=== PATIENT | male | born 1960 | race Caucasian/White ===

== ENCOUNTER → 2021-01-17 13:42 | Outpatient (CLI) | payer OTHER, SELFPAY ==
[2021-01-09 15:21] VITALS: BMI 25.8
--- NOTE | 2021-01-17 13:57 | RAD_ITS ---
INDICATION: RECTAL CANCER -- PT ALSO HAS CT EXAMINATION/TECHNIQUE: X-RAY - XR Chest 2 Views COMPARISON: None. FINDINGS: The lungs are clear. Left basilar atelectasis. The cardiomediastinal silhouette is unremarkable. No pleural effusion or pneumothorax. Degenerative changes of the thoracic spine. RAD/Chest PA and Lateral IMPRESSION: No acute radiographic abnormalities. Electronically Signed: Kishore Toledo MD at 16:45 EDT Tel , Service support ,
[2021-01-17 14:15] LABS: CREATININE FINGERSTICK 0.8 mg/dL (0.70-1.30); EGFR FINGERSTICK > 60.0000 mL/min (>60)
--- NOTE | 2021-01-17 14:18 | CT_ITS ---
STUDY: CT ABDOMEN AND PELVIS WITH CONTRAST REASON FOR EXAM: Male, 60 years old. RECTAL CANCER RADIATION DOSAGE (If Supplied By Facility): CTDIvol = ( 12.59 ) mGy, DLP = ( 852.98 ) mGycm TECHNIQUE: Transaxial images were obtained from the dome of the diaphragm to the symphysis pubis with oral contrast. Oral and amp; IV Readi-CAT and amp; 100mL Isovue-300 was administered. Sagittal and coronal images were reconstructed. Individualized dose optimization techniques were used for this CT. COMPARISON: None. FINDINGS: The visualized lung bases are unremarkable. The visualized portions of the heart are within normal limits. Normal liver. Normal gallbladder and extrahepatic biliary system. Normal spleen. Normal pancreas. Normal bilateral adrenal glands. Normal right kidney. Normal left kidney. There is a small hiatal hernia. Normal small intestine. Moderate amount of fecal material is seen in the rectosigmoid colon. There is narrowing of the rectum just distal to the rectosigmoid junction. The appendix is visualized and appears normal. There is scattered atherosclerotic calcification of the abdominal aorta, without a demonstrated aneurysm. Normal inferior vena cava. Normal retroperitoneum. Normal urinary bladder. There are prostatic calcifications. There is a left-sided inguinal hernia containing adipose tissue. There are diffuse degenerative changes of the visualized lumbar spine. CT/Abdomen/Pelvis WITH Contrast IMPRESSION: Narrowing of the rectosigmoid junction. Electronically Signed: Ramiro Martínez MD at 14:58 EDT , Service support ,
[2021-01-19 08:43] LABS: Carcinoembryonic Antigen 2.8 ng/mL (0.0-4.7)
== END ==
PROVIDERS: PCP Internal Medicine; Referring Provider Internal Medicine Medical Oncology; Visit Provider Internal Medicine Medical Oncology
DX: C20 Malignant neoplasm of rectum (principal)
CPT/HCPCS: 36415; 71046; 74177; 82378; Q9967

== ENCOUNTER → 2021-01-22 16:54 | Outpatient (CLI) | payer OTHER, SELFPAY ==
[2021-01-09 15:21] VITALS: BMI 25.8
--- NOTE | 2021-01-22 16:55 | MRI_ITS ---
RECTAL MRI 01/22/2021 5:09 PM CLINICAL HISTORY: RESTAGING RECTAL CANCER COMPARISON: MR 08/28/2020 TECHNIQUE: The following sequences were obtained through the pelvis: high resolution T2 weighted images in the axial, sagittal, oblique axial, oblique coronal planes, diffusion weighted images, and T1 axial images following gadolinium administrations. FINDINGS: There is redemonstration of an approximately 1.8 cm area of T2 isointense asymmetric wall thickening in the mid rectum (image 12, series 5). The distance between the inferior edge of the tumor and the anal verge is : 8 cm. T Stage: The tumor does not extend beyond muscularis propria. Peritoneal reflection: Not involved Other organ involvement: None Anal sphincter: Not involved Pelvic lymph nodes: No mesorectal or pelvic sidewall lymphadenopathy. Circumferential resection margin: No tumor or lymph nodes within 1 mm of the mesorectal fascia. Extramural vascular invasion: None Ascites: None Bones: Unremarkable MRI/Pelvis W/WO Contrast IMPRESSION: Stable 1.8 cm area of asymmetric wall thickening in the mid rectum, 8 cm from the anal verge. Rectal cancer T Stage = T1/2 (MR cannot distinguish between T1 and T2 tumor. The tumor is confined to the muscularis propria.) No lymphadenopathy. Electronically Signed: Kishore Toledo MD at 18:56 EDT Tel , Service support ,
== END ==
LOC: MRI 16:55
PROVIDERS: PCP Internal Medicine; Referring Provider Internal Medicine Medical Oncology; Visit Provider Internal Medicine Medical Oncology
DX: C20 Malignant neoplasm of rectum (principal)
CPT/HCPCS: 72197; A9575